=== PATIENT | male | born 1965 | race Caucasian/White ===

== ENCOUNTER 2016-12-21 14:56 | Emergency (ER) | payer OTHER ==
[~2016-12-21] VITALS: Ht 175.3 cm; Wt 75.0 kg
[~2016-12-21 14:56] MED LIST: NOMED
[2016-12-21 14:57] VITALS: BP 155/102; PULSE 91; RESP 20; O2SAT 99
--- NOTE | 2016-12-21 18:26 | ED.REPORT ---
HPI-Extremity Problem Upper Date of Service Dec 21, 2016 ED Provider: Doc,Ed MD History of Present Illness: reaching back trying to grab the railing on and felt something rip in left arm. left hand dominant. 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 no primary care. normally healthy no pain with not moving, worse at night. Has been seen at the [facility] for this already Nursing Notes Stated Complaint: LEFT ARM, L&I Chief Complaint: Extremity Trauma Nursing Notes Reviewed: Yes Allergies: Coded Allergies: No Known Allergies (Unverified , 12/21/16) Miscellaneous Medications No Historical Medication (No Historical Medication) Ea General Time Seen by MD: 18:25 Chief Complaint Arm injury left Hx Obtained From: Patient Onset Occurred: 4 days ago Symptom Duration: 4 days Past Medical History Past Medical History Denies: Asthma, Diabetes mellitus Past Surgical History Reports: Appendectomy Smoking History Former Smoker (quit 6 years ago) Social History Alcohol Use: "Social" Drug Use: Denies drug use Occupation , works as low income convention services manager 12/21/2016 Ambulatory Status Independent Review of Systems Basic Review of Systems Eyes: Vision NL, No discharge Hematologic: No bleeding, No bruising Psychiatric: Normal thought content Physical Exam Initial Vital Signs Vital Signs (First) Date Time Temp Pulse Resp B/P Pulse Ox O2 Delivery O2 Flow Rate FiO2 12/21/16 14:57 36.1 91 20 155/102 99 Room Air Initial VS: Reviewed, Vital signs abnormal General/Constitutional: Well-developed, Well-nourished Head / Eyes: Atraumatic, Normocephalic, PERRL ENT: Mucous membranes moist, Conjunctiva normal, No scleral icterus Neck: Supple, Non-tender, Full range of motion Respiratory: Breath sounds normal, Clear to auscultation, No respiratory distress Cardiovascular: Regular rate & rhythm, Heart sounds normal, Intact distal pulses Abdomen / GI: Soft, Non-tender, No guarding, No rebound, No distention Back: No CVA tenderness Lymphatic: No lymphadenopathy Lower Extremities: Vascular intact, Neuro intact, No swelling, No tenderness Skin: Warm, Dry, No cyanosis Neurologic: Alert, Oriented, Nonfocal Psychiatric: Mood/affect normal, Behavior normal, Normal thought content General/Constitutional: Awake, Alert, No acute distress Respiratory / Chest: Atraumatic, Breath sounds NL, Breath sounds = bilat, No respiratory distress Cardiovascular: Heart rate NL, Regular rhythm, Heart sounds NL, No gallop patient with yonny deformity on left arm. able to extend arm but not fully. Interpretation & Diagnostics X-Ray Interpretation Xray Interpretation: PROCEDURE: X-RAY LEFT ELBOW COMPLETE, MINIMUM THREE VIEWS ([id number]) INDICATIONS: fall ? triceps tendon tear TECHNIQUE: 3 views of the elbow were acquired. COMPARISON: None. FINDINGS: Bones: No fractures or dislocations. No suspicious bony lesions. Soft tissues: Minimal elbow joint effusion. No suspicious soft tissue calcifications. IMPRESSION: No visualized acute fracture or dislocation. However, if clinical concern and/or pain persist, short interval imaging followup in 7-10 days is recommended, as occult injury cannot be definitively excluded. Dictated by: Maureen Kee M.D. on 12/21/2016 at 19:31 Approved by: Maureen Kee M.D. on 12/21/2016 at 19:33 Re-Eval/Medical Decision Med Decision/Clinical Course 51 year old male present with arm injury from 4 days ago. Patient initially seen at [facility]. Is admant that he have surgery to repair injury. Explained that sometimes surgery is not indicated. Called Dr. Gabriel, he will see patient and evualate. Patient provided office phone number. No sign of elbow fracture, hematoma or joint effusion Discharge & Departure Impression: Primary Impression: Rupture of left triceps tendon Encounter type: subsequent encounter Qualified Code: S46.312D - Strain of muscle, fascia and tendon of triceps, left arm, subsequent encounter Disposition: Home Patient Instructions: Repairs of the Biceps and Triceps Tendons (ED) Additional Instructions: I spoke with Dr. Gabriel this evening. Please call his office for a follow up appointment. The x-ray does not show any sign of a fracture. Sometimes this is repaired and sometimes it is not. It is an ortho and you joint decision. Wear the sling for comfort. Use the pain medication that you were provided 3 days ago. Referrals: Abilio Gabriel DO EDSupervising Provider for APC: Keshia Villavicencio MD copies to: Abilio Gabriel Sue ARNP Dec 21, 2016 18:26
[2016-12-21 18:34] VITALS: BP 160/111; PULSE 61; O2SAT 99
--- NOTE | 2016-12-21 19:34 | DRSVH ---
PROCEDURE: X-RAY LEFT ELBOW COMPLETE, MINIMUM THREE VIEWS ([id number]) INDICATIONS: fall ? triceps tendon tear TECHNIQUE: 3 views of the elbow were acquired. COMPARISON: None. FINDINGS: Bones: No fractures or dislocations. No suspicious bony lesions. Soft tissues: Minimal elbow joint effusion. No suspicious soft tissue calcifications. IMPRESSION: No visualized acute fracture or dislocation. However, if clinical concern and/or pain pe rsist, short interval imaging followup in 7-10 days is recommended, as occult injury cannot be defini tively excluded. Dictated by: Maureen Kee M.D. on 12/21/2016 at 19:31 Approved by: Maureen Kee M.D. on 12/21/2016 at 19:33
[2017-01-06] MEDS ORDERED: NAPR500T5 PO (15:25)
[2017-01-06] MEDS ORDERED: HYDR-4003 PO (15:25)
== END 2016-12-21 19:15 | disposition home or self-care (01) ==
LOC: SED 14:56
DX: S46.312D Strain of muscle, fascia and tendon of triceps, left arm, subsequent encounter (principal); X50.0XXD Overexertion from strenuous movement or load, subsequent encounter; Y93.89 Activity, other specified; Y92.89 Other specified places as the place of occurrence of the external cause; Y99.0 Civilian activity done for income or pay; Z87.891 Personal history of nicotine dependence

== ENCOUNTER 2017-01-07 12:32 | Day surgery (SDC) | payer OTHER ==
[2017-01-07] VITALS (7 sets, daily range): BP systolic 119–137; BP diastolic 88–93; PULSE 68–74; RESP 14–16; O2SAT 95–98
[~2017-01-07] VITALS: Ht 175.3 cm; Wt 76.2 kg
[~2017-01-07 12:32] MED LIST changes: +CeFAZolin 2 Gm/50 mL D5W IV Premix IV ONE; +HYDR-4003 PO; +NAPR500T5 PO; -NOMED
[2017-01-07] MEDS ORDERED: fentaNYL-PF 50 mCg/mL 2 mL Inj ONE (12:33)
[2017-01-07] MEDS ORDERED: Ondansetron 2 mg/mL 2 mL Inj ONE (12:33)
[2017-01-07] MEDS ORDERED: Dexamethasone 4 mg/mL Inj ONE (12:33)
[2017-01-07] MEDS ORDERED: Propofol 10,000 mCg/mL 20 mL Inj ONE (12:33)
[2017-01-07] MEDS: Lactated Ringer's 1,000 ML IV SCH ×2 (12:42→15:00)
[2017-01-07] MEDS ORDERED: CeFAZolin Inj 2 gm / 50mL D5W IV ONE ×2 (14:54→14:56)
[2017-01-07] MEDS ORDERED: HYDROcodone-APAP 5-325 mg Tablet PO PRN (15:05)
--- NOTE | 2017-01-07 15:14 | PCM.ORTHOP ---
Orthopedic Operative Report Date of Service: Jan 07, 2017 Pre Operative Diagnosis Left distal biceps rupture Post Operative Diagnosis Same Procedure Left distal biceps repair Surgeon Surgeon: Joaquin Freed MD Assistants: Nehemias Schwartz Indication for Procedure Left distal biceps rupture Findings Left distal biceps complete rupture with 2 cm of retraction Details of Procedure Operative Indications: Justen Looney is a 50-year-old male with left-hand dominant male who presents with a left distal biceps rupture A clear explanation was given to the patient regarding the condition, the conservative and surgical options. It was emphasized that the risks and benefits of surgery include but are not limited to infection, wound healing problems, damage to adjacent structures such as nerves, blood vessels and tendons, fci disability and pain, arthritis, hypersensitivity, deep vein thrombosis, pulmonary embolism and loss of limb or life. The likely post operative recovery and the instructions that are to be followed after surgery were also discussed and explained. The patient was invited to ask questions or seek clarification but there were none. The patient voiced understanding of the entire discussion and requested to move forward. Procedure: The patient was seen in preoperative holding and the left side was reconfirmed and marked as the correct side. The patient was taken to the OR and transferred to the OR table without incident. A time-out was performed reconfirming the patients identity, laterality of surgery and proper administration of preoperative antibiotics. After the examination the extremity was prepped and draped in a sterile fashion with 2% Clorhexadine solution. A sterile tourniquet was applied. The incision was clearly marked out We paused to reconfirm the procedure and laterality one last time. Incision was made with a #15 blade and subsequent sharp dissection was performed with aid of electrocautery to control the bleeding down to the level of the fascia. Appropriate full thickness skin flaps were subsequently developed. There was notable disruption of left distal biceps from the trauma. The interval between the FCR and pronator teres was identified and developed down to the level of the joint capsule. The lateral antebrachial cutaneous nerve was identified and retracted. Recurrent veins were isolated and coagulated with a bipolar electrocautery. The forearm was fully supinated and the area vacated by the ruptured biceps was identified. Using blunt disection and the bipolar the radial tuberosity was exposed until there was good visualization. At this time the biceps tendon was palpated retracted into the upper arm and was delivered out of the wound. The tendon's overall condition was ratty. The very end was debrided and then whipstitched in a grasping fashion with a Fiberloop. The allowed for a good grasping stitch. Provisionally it appeared that the tendon could be reduced down to the level of the radial tuberosity. The tuberosity was then debrided and a guidepin was placed slightly distal to the exact center of the insertion point. This was checked with Fluoro to ensure correct placement. The near cortex was then reamed with a 8.5 reamer. A 7mm cortical button was attached to the end of the suture and the elbow flexed. The button was introduced through the bone tunnel flipped and then appropriate tension was applied to reduce the tendon to the bone. The reduction was secure and ROM was checked demonstrated that the biceps was not under too much tension. A interference screw was inserted. The tourniquet was let down and bleeding was controlled. The wound was irrigated copiously with sterile saline solution. Subcutaneous closure was achieved with 2-0 vicryl followed by a running subcuticular 3-0 monocryl suture. Steri strips were then applied. The wound was then dressed in a sterile fashion and a posterior splint was applied. The patient was awoken gently from anesthesia and transferred to the PACU in stable condition. STUDY SPECIALIST SURGEON: During the operation, the services of physician cancer genetics assistant were medically indicated and necessary to provide exposure of the operative site for the surgical procedure and to maintain the limb in a proper position to carry out the operation safely and efficiently. Without the qualified personal injury legal assistant being present, it would have extended the operative procedure and made the procedure technically more difficult to perform. Please keep dressing clean dry and intact. Do not remove dressing until follow- up in clinic. Do not weight-bear on the affected extremity. You will follow up in clinic in 10-14 days for suture removal, and placement of new Steri- Strips. You will follow-up with me in clinic without x-rays at this time. You will follow-up with my PA at 6 weeks postop and may start weightbearing as tolerated at 6-8 weeks. dependnig on yor motion and pain level. Please keep the affected extremity elevated when possible. You may use ice and/or heat as needed for comfort (preferably ice during the first 48-72 hours. Please feel free to call with any further questions, comments, and/or concerns. You have been given medications for pain, medication for possible constipation which is a side affect of the pain medications. Elbow ROM from 30 degrees of extension to 130 degrees of flexion GOALS: Maintain minimal swelling and soft tissue healing Achieve full forearm supination and pronation Patient should perform passive ROM exercises from 30 degrees of extension to 130 degrees of flexion 5-6 times per day for 25 repetitions. Apply ice after exercise sessions. A sling or cuff and collar may be used for the splint or hinged brace respectively. Shoulder ROM exercises are encouraged. Grafts, Implants: Implants-See Implant Record Complications There were no periprocedural complications identified. Condition Stable Anesthetic Administered: GA Catheters: None Output, Estimated Blood Loss: 20 Blood Admin during surgery: No Surgical Cast or Splint: Other Surgical Specimen Removed: No Specimen sent to Pathology: No copies to: Joaquin Freed MD, Christopher L MD Jan 07, 2017 15:14
--- NOTE | 2017-01-07 15:31 | PCM.HPANE ---
Patient Data Date of Service: Jan 07, 2017 Surgeon Admitting Provider: Attending Provider:Joaquin Freed MD Primary Care Physician:Alexandra Other Provider:Kamille Willis Anesthesia Reason for Visit Left Distal Biceps Tendon Rupture Ht/WT & BMI Height (Feet): 5 Height (Inches): 9 Weight (Kilograms): 76.2 Body Mass Index 24.00 Allergies Coded Allergies: No Known Allergies (Unverified , 01/07/17) Past Anesthesia History Anesthesia History: Denies:: Abnormal Airway, Anesthesia Reactions, Difficult Intubation, Fam Anesthesia Reaction Diabetes History Hx Diabetes?: No MRSA MRSA: No Medications Hypertension Medication: No Home Meds Incl Beta Jesse: No Reported Medications Hydrocodone-Acetaminophen 5-325 mg 1 Each Tablet1 Tablet PO Q6H PRN For Pain Ref 0 01/06/17 Naproxen 500 Mg Tablet.dr500 Mg PO BID PRN For Pain Ref 0 01/06/17 Discontinued Reported Medications No Historical Medication Ea 02/10/13 History HEENT History: Positive for:: TMJ (grinds teeth, no nightguard) Denies:: Abnormal Airway Cataracts Difficult Intubation Dysphagia Glaucoma Hearing Problem Sinus Problem Hx of Heart Problems?: No Cardiovascular History: Denies:: AICD Abdominal Aortic Aneurism Atrial Fibrillation Congestive Heart Failure Heart Murmur Hypertension Irregular Heartbeat Pacemaker Rheumatic Fever Hx of Respiratory Problem?: No Respiratory History: Denies:: Asthma COPD Emphysema Oxygen Administration Pneumonia Tuberculosis Use of C-PAP Machine Hx Neurologic Problems?: No Neurological History: Denies:: Alzheimer's Disease CVA Dizziness Headaches Multiple Sclerosis Parkinson's Disease Seizures TIA Hx of GI Problems?: No Gastrointestinal History: Denies:: Cirrhosis Gall Bladder Disease Gastroesphageal Reflux Gastrointestinal Bleeding Heartburn Hepatitis Hiatal Hernia Liver Disease Hx of Problems?: No Genitourinary History: Denies:: Kidney Stones Urinary Tract Infection HX of Peritoneal Dialysis: No Male Hx: Denies:: Prostate Problems Skin History: Denies:: History Skin Disorders? Pressure Ulcers Hx Musculoskeletal Problems?: Yes Musculoskeletal History: Positive for:: Musculoskeletal Trauma (left arm current admission problem, DOI 12/17/16) Denies:: Back Injury Fibromyalgia Joint Replacement Myasthenia Gravis Osteoarthritis Rheumatoid Arthritis Hx of Psycho/Social Problems?: No Psycho Social History: Denies:: Anxiety Hx Depression Hx Surgeries?: Yes (appe) Hx Any Other Health Problems?: Yes Other History: Denies:: Cancer Thyroid Disease History Blood Transfusions: Positive for:: Accept Blood Products? Denies:: Blood Transfusions Hx Diabetes: No Hx Alcohol Use: YesAlcoholic Drinks Per Day: 4-5 drinks weeklyHx Substance Use : No Smoking Status: Former Smoker Have You Smoked inLast 12 mo: No Stop/Bang Treated for Sleep Apnea?: No Do You Have a CPAP Machine?: No S-Snoring: Do You Snore Loudly: No T-Tired: feel tired, fatigued: No O-Obsered: Observed not breath: No P-Blood Pressure: treated: No B- Body Mass Index > 35 kg/m2: No A- Age over 50: Yes N- Neck Large Circumference: No G- Gender Male: Yes LESLIE Total Score: 2 LESLIE Risk Assessment: Low Risk, <3 Yes Risk Assessment Category Category 1A: Patient has history of documented sleep apnea, and HAS NOT received any narcotic, sedative or anesthesia administration during this stay. Category 1B: Patient has history of documented sleep apnea, and HAS received any narcotic , sedative or anesthesia administration during this stay Category 2: Patient has SUSPECTED Obstructive Sleep Apnea, and HAS received any narcotic , sedative or anesthesia administration during this stay. Category 3: Patient has SUSPECTED Obstructive Sleep Apnea and HAS NOT received narcotic, sedative or anesthesia administration during this stay. Category 4: Outpatient in Procedural Areas with known sleep apnea or who screen positive for High Risk via the STOP/BANG questionnaire. Exam Exam Vital Signs Vital Signs Date Time Temp Pulse Resp B/P Pulse Ox O2 Delivery O2 Flow Rate FiO2 01/07/17 13:46 36.6 72 16 137/93 97 Room Air General Appearance: Alert HEENT/AIRWAY: MP 1 Lungs: Clear to Auscultation Heart: Exam Unremarkable Meds/Labs/Diagnostics Admission Meds Current Medications Lactated Ringer's (Lr) 1,000 ml @ 120 mls/hr Q8H20M IV Last administered on t 12:42; Start 01/07/17 at 05:00; Stop 01/07/17 at 13:19; Status DC Plan Impression Patient chart reviewed, patient interviewed and anesthestic plan with risks, benefits, and alternatives discussed, and informed consent obtained. NPO Status: 01/06 ASA Physical Status: ASA1 Normal Healthy Anesthetic Plan: GA Bene/Risks/Altern/Consents: Yes HP Complete Prior to Induction: Yes Stanley Medina MD Jan 07, 2017 15:31
[2017-01-07] MEDS ORDERED: Lactated Ringer's 500 ML IV PRN (15:32)
[2017-01-07] MEDS ORDERED: Lactated Ringer's 1,000 ML IV SCH (15:32)
[2017-01-07] MEDS ORDERED: MetoCLOpramide 5 mg/mL 2 mL Inj IVPUSH PRN (15:35)
[2017-01-07] MEDS ORDERED: Ondansetron 2 mg/mL 2 mL Inj IVPUSH PRN (15:35)
[2017-01-07] MEDS ORDERED: Phenylephrine 10,000 mCg/mL Inj IVPUSH PRN (15:35)
[2017-01-07] MEDS ORDERED: Dexamethasone 4 mg/mL Inj IVPUSH PRN (15:35)
[2017-01-07] MEDS ORDERED: EPHEDrine Sulfate 50 mg/mL Inj IVPUSH PRN (15:35)
[2017-01-07] MEDS ORDERED: HYDROmorphone 1 mg/mL Inj IVPUSH PRN (15:35)
[2017-01-07] MEDS ORDERED: Bacitracin 50,000 unit Inj IRRIGATION ONE (15:57)
--- NOTE | 2017-01-07 18:04 | PCM.ANEP1 ---
Post Anesthesia Phase 1 PACU Phase 1 Assessment Date of Service: Jan 07, 2017 Vital Signs Vital Signs Date Time Temp Pulse Resp B/P Pulse Ox O2 Delivery O2 Flow Rate FiO2 01/07/17 17:29 70 16 128/90 98 Room Air 01/07/17 17:14 36 68 16 132/91 98 Room Air 01/07/17 17:08 73 14 121/89 95 01/07/17 16:55 74 16 119/91 97 01/07/17 16:50 73 14 124/88 97 01/07/17 16:45 36.4 71 15 125/89 96 Room Air 01/07/17 13:46 36.6 72 16 137/93 97 Room Air Anesthetic Administered: GA Level of Alertness: Awake, talking Nausea or Vomiting: No Oxygen Delivery: Room Air Lungs: Clear to Auscultation Stanley Medina MD Jan 07, 2017 18:04
--- NOTE | 2017-01-07 18:04 | PCM.ANEP2 ---
Post Anesthesia Evaluation ASA/CMS Post Anesthesia VS in Patient's Normal Range?: Yes Resp Stable; Airway Patent?: Yes CV Function & Hydration Stable: Yes Mental Status Recovered?: Yes Pain control Satisfactory?: Yes N/V Control Satisfactory?: Yes Stanley Medina MD Jan 07, 2017 18:04
== END 2017-01-07 23:59 | disposition home or self-care (01) ==
LOC: SAS 12:32
PROVIDERS: ATTEND Orthopaedic Surgery
DX: S46.212A Strain of muscle, fascia and tendon of other parts of biceps, left arm, initial encounter (principal); W18.43XA Slipping, tripping and stumbling without falling due to stepping from one level to another, initial encounter; Y93.9 Activity, unspecified; Y92.9 Unspecified place or not applicable; M25.522 Pain in left elbow
CPT/HCPCS: 24342; 76000; C1713; J0690; J1100; J2250; J2405; J3010; J7120